=== PATIENT | male | born 1945 | race African-American/Black ===

== ENCOUNTER 2017-01-19 15:53 | Inpatient (IN) | payer OTHER, MEDICARE ==
[~2017-01-19] VITALS: Ht 185.4 cm; Wt 139.7 kg
[~2017-01-19 15:53] MED LIST: CASODEX50 MG PO; CELECOXIB200 MG PO; COUMADIN1 MG PO; HYZAAR 50-121 TABLET PO; IRON325 M1 PO; JANTOVEN4 MG PO; K-DUR20 MEQ PO; LIPITOR40 MG PO; LISINOPRIL-HCT1 EAC3 PO; MELOXICAM7.5 MG PO; METHOCARBAMOL500 MG PO; MICRO-K10 ME2 PO; MOBIC7.5 MG PO; NORVASC10 MG PO; OXYCODONE HCL5 MG PO; OXYCONTIN10 MG PO; PREDNISONE50 MG PO; TOPROL XL50 MG PO; TRAMADOL HCL50 MG PO; VITAMIN B12-FO1 EACH PO; VITAMIN D31000 UNIT PO; XARELTO10 MG PO
[2017-01-19 16:54] LABS: EOSINOPHIL (%) 0.5 % (0-5); HEMATOCRIT 25.2 % (38.0-50.0); IMMATURE GRANULOCYTE (%) 1.2 % (0.0-0.7); IMMATURE GRANULOCYTE COUNT 0.1 K/uL; INSTRUMENT ABS NEUTROPHIL CT 6.1 K/uL; LYMPHOCYTE COUNT 0.6 K/uL (1.0-2.8); MCH 28.5 PG (29.0-34.0); MCHC 31.3 G/DL (30.0-36.0); MONOCYTE (%) 7.5 % (3-12); MONOCYTE COUNT 0.6 K/uL (0-0.8); NEUTROPHIL (%) 83.2 % (45-76); NEUTROPHIL COUNT 6.1 K/uL (1.8-6.4); NRBC (%) 0.3 /100 WBC (0-0); PLATELET COUNT 177 K/uL (156-360); RBC DIS.WIDTH-CV 19.2 % (11.8-14.6); RBC DIS.WIDTH-SD 63.5 % (39-53); RED BLOOD COUNT 2.77 M/uL (4.00-5.50); WHITE BLOOD COUNT 7.4 K/uL (4.1-10.2)
[2017-01-19 17:02] LABS: CHLORIDE 110 mEq/L (99-109); SODIUM 139 mEq/L (136-147)
[2017-01-19 17:04] LABS: GLUCOSE 114 mg/dL (70-99)
[2017-01-19 17:05] LABS: ANION GAP 11 MEQ/L (2-14)
[2017-01-19 17:08] LABS: ALKALINE PHOSPHATASE 211 IU/L (3-129); GFR ESTIMATE (CALCULATED) 32 mL/min/
[2017-01-19 17:09] LABS: UREA NITROGEN (BUN) 44 mg/dL (9-23)
[2017-01-19] MEDS ORDERED: VITAMIN B-1100 MG PO (21:25)
[2017-01-19] MEDS ORDERED: MORPHINE SULFAT30 M2 PO (21:26)
[2017-01-19] MEDS ORDERED: PREDNISONE5 MG PO (21:27)
[2017-01-19] MEDS ORDERED: MORPHINE SULFAT15 MG PO (21:27)
[2017-01-19] MEDS ORDERED: SSD25GM TP (21:27)
[2017-01-19] MEDS ORDERED: ZYTAZE CAPSULE1 EACH PO (21:28)
[2017-01-19 21:45] LABS: ANION GAP 7 MEQ/L (2-14); CHLORIDE 113 MEQ/L (99-109); SAMPLE HEMOLYSIS CHECK 0; SAMPLE ICTERIC CHECK 0; SAMPLE LIPEMIA CHECK 0; SODIUM 140 MEQ/L (136-147)
[2017-01-19 21:51] LABS: GFR ESTIMATE (CALCULATED) 35 mL/min/; GLUCOSE 138 mg/dL (70-99); UREA NITROGEN (BUN) 43 mg/dL (9-23)
[2017-01-20 01:18] VITALS: BP 116/66
[2017-01-20 04:17] VITALS: BP 111/54
[2017-01-20 06:59] LABS: HEMATOCRIT 26.3 % (38.0-50.0); MCH 28.9 PG (29.0-34.0); MCHC 31.6 G/DL (30.0-36.0); MCV 91.6 FL (86-99); MEAN PLAT.VOLUME 9.9 uM^3 (9.0-12.4); NRBC (%) 0.6 /100 WBC (0-0); PLATELET COUNT 190 K/uL (156-360); RBC DIS.WIDTH-CV 19.4 % (11.8-14.6); RBC DIS.WIDTH-SD 66.1 % (39-53); RED BLOOD COUNT 2.87 M/uL (4.00-5.50); WHITE BLOOD COUNT 6.6 K/uL (4.1-10.2)
[2017-01-20 07:17] LABS: ANION GAP 11 MEQ/L (2-14); CHLORIDE 110 MEQ/L (99-109); GFR ESTIMATE (CALCULATED) 38 mL/min/; GLUCOSE 108 mg/dL (70-99); POTASSIUM 5.4 MEQ/L (3.7-5.4); SAMPLE HEMOLYSIS CHECK 0; SAMPLE ICTERIC CHECK 0; SAMPLE LIPEMIA CHECK 0; SODIUM 140 MEQ/L (136-147); UREA NITROGEN (BUN) 42 mg/dL (9-23)
[2017-01-20 08:00] VITALS: BP 110/52
[2017-01-20 15:32] LABS: ANION GAP 9 MEQ/L (2-14); CHLORIDE 113 MEQ/L (99-109); GFR ESTIMATE (CALCULATED) 43 mL/min/; GLUCOSE 100 mg/dL (70-99); POTASSIUM 4.8 MEQ/L (3.7-5.4); SAMPLE HEMOLYSIS CHECK 0; SAMPLE ICTERIC CHECK 0; SAMPLE LIPEMIA CHECK 0; SODIUM 141 MEQ/L (136-147); UREA NITROGEN (BUN) 40 mg/dL (9-23)
[2017-01-20 15:53] LABS: ADD MIUA? YES; BILIRUBIN NEGATIVE; BLOOD LARGE; COLOR YELLOW ((YELLOW)); GLUCOSE (STRIP) NEGATIVE; KETONES NEGATIVE; LEUKOCYTES NEGATIVE; NITRITE NEGATIVE; PROTEIN (STRIP) NEGATIVE; SPECIFIC GRAVITY 1.015 (1.000-1.030); UROBILINOGEN 0.2 MG/DL (0.2-1.0)
[2017-01-20 16:32] LABS: BACTERIA RARE /HPF; EPITHELIAL CELLS RARE /HPF; MUCUS TRACE /LPF
[2017-01-20 16:56] LABS: CASTS PRESENT /LPF; CRYSTALS NONE SEEN
[2017-01-20 16:57] LABS: COARSE GRANULAR CASTS 0-5 /LPF; FINE GRANULAR CASTS RARE /LPF
[2017-01-20 19:30] VITALS: BP 90/51
[2017-01-20 21:00] VITALS: BP 102/53
[2017-01-20 23:34] VITALS: BP 113/54
[2017-01-21 05:18] VITALS: BP 110/56
[2017-01-21 06:40] LABS: HEMATOCRIT 21.5 % (38.0-50.0); MCH 28.4 PG (29.0-34.0); MCHC 31.2 G/DL (30.0-36.0); MCV 91.1 FL (86-99); MEAN PLAT.VOLUME 9.9 uM^3 (9.0-12.4); NRBC (%) 0.5 /100 WBC (0-0); PLATELET COUNT 164 K/uL (156-360); RBC DIS.WIDTH-CV 19.2 % (11.8-14.6); RBC DIS.WIDTH-SD 64.1 % (39-53); RED BLOOD COUNT 2.36 M/uL (4.00-5.50); WHITE BLOOD COUNT 5.5 K/uL (4.1-10.2)
[2017-01-21 06:45] LABS: URIC ACID 7.9 mg/dL (3.1-9.2)
[2017-01-21 06:51] LABS: ANION GAP 11 MEQ/L (2-14); CHLORIDE 112 MEQ/L (99-109); GFR ESTIMATE (CALCULATED) 55 mL/min/; GLUCOSE 101 mg/dL (70-99); POTASSIUM 4.4 MEQ/L (3.7-5.4); SAMPLE HEMOLYSIS CHECK 0; SAMPLE ICTERIC CHECK 0; SAMPLE LIPEMIA CHECK 0; SODIUM 144 MEQ/L (136-147); UREA NITROGEN (BUN) 34 mg/dL (9-23)
[2017-01-21 07:54] VITALS: BP 113/54
[2017-01-21 09:10] LABS: HEMATOCRIT 26.5 % (38.0-50.0); MCV 91.7 FL (86-99)
[2017-01-21 13:07] LABS: INTER. NORMALIZED RATIO 1.6; PROTHROMBIN TIME 17.4 SEC (10.2-12.9)
[2017-01-21 13:09] LABS: PTT 38.9 SEC (25-37)
[2017-01-21 13:21] LABS: IRON 53 MCG/DL (35-150)
[2017-01-21 13:37] LABS: FERRITIN 977 NG/ML (22-322)
[2017-01-21 15:34] VITALS: BP 108/51
[2017-01-21 19:52] LABS: INTERNAL CONTROL VALID? YES
[2017-01-21 20:02] VITALS: BP 103/51
[2017-01-21 20:36] VITALS: BP 101/74
[2017-01-21 22:10] VITALS: BP 101/54
[2017-01-22 00:12] VITALS: BP 135/59
[2017-01-22 06:17] LABS: HEMATOCRIT 22.6 % (38.0-50.0); MCH 28.5 PG (29.0-34.0); MCHC 31.4 G/DL (30.0-36.0); MCV 90.8 FL (86-99); MEAN PLAT.VOLUME 10.1 uM^3 (9.0-12.4); NRBC (%) 1.2 /100 WBC (0-0); PLATELET COUNT 174 K/uL (156-360); RBC DIS.WIDTH-CV 19.1 % (11.8-14.6); RBC DIS.WIDTH-SD 63.6 % (39-53); RED BLOOD COUNT 2.49 M/uL (4.00-5.50); WHITE BLOOD COUNT 6.5 K/uL (4.1-10.2)
[2017-01-22 06:24] LABS: ANION GAP 7 MEQ/L (2-14); CHLORIDE 110 MEQ/L (99-109); GFR ESTIMATE (CALCULATED) 51 mL/min/; GLUCOSE 98 mg/dL (70-99); POTASSIUM 4.1 MEQ/L (3.7-5.4); SAMPLE HEMOLYSIS CHECK 0; SAMPLE ICTERIC CHECK 0; SAMPLE LIPEMIA CHECK 0; SODIUM 139 MEQ/L (136-147); UREA NITROGEN (BUN) 33 mg/dL (9-23)
[2017-01-22 07:47] VITALS: BP 132/65
[2017-01-22 08:35] LABS: HEMATOCRIT 24.7 % (38.0-50.0); MCV 90.8 FL (86-99)
[2017-01-22 13:55] LABS: HEMATOCRIT 28.1 % (38.0-50.0); MCV 89.5 FL (86-99)
[2017-01-22 15:52] VITALS: BP 119/56
[2017-01-22 19:23] LABS: HEMATOCRIT 23.5 % (38.0-50.0); MCV 91.4 FL (86-99)
[2017-01-22 21:41] VITALS: BP 129/60
[2017-01-22 23:25] VITALS: BP 125/64
[2017-01-23 01:16] LABS: HEMATOCRIT 22.6 % (38.0-50.0); MCV 89.3 FL (86-99)
[2017-01-23 07:46] VITALS: BP 123/70
[2017-01-23 09:03] LABS: EOSINOPHIL (%) 2.3 % (0-5); EOSINOPHIL COUNT 0.2 K/uL (0-0.3); HEMATOCRIT 23.9 % (38.0-50.0); IMMATURE GRANULOCYTE COUNT 0.2 K/uL; LYMPHOCYTE COUNT 0.9 K/uL (1.0-2.8); MCH 29.4 PG (29.0-34.0); MCHC 32.6 G/DL (30.0-36.0); MCV 90.2 FL (86-99); MEAN PLAT.VOLUME 10.2 uM^3 (9.0-12.4); MONOCYTE (%) 6.5 % (3-12); MONOCYTE COUNT 0.4 K/uL (0-0.8); NEUTROPHIL (%) 74.2 % (45-76); PLATELET COUNT 195 K/uL (156-360); RBC DIS.WIDTH-CV 18.9 % (11.8-14.6); RBC DIS.WIDTH-SD 62.6 % (39-53); RED BLOOD COUNT 2.65 M/uL (4.00-5.50); WHITE BLOOD COUNT 6.7 K/uL (4.1-10.2)
[2017-01-23 09:23] LABS: ANION GAP 11 MEQ/L (2-14); CHLORIDE 107 MEQ/L (99-109); GFR ESTIMATE (CALCULATED) > 59 mL/min/; GLUCOSE 108 mg/dL (70-99); MAGNESIUM 1.9 mg/dl (1.3-2.7); SAMPLE HEMOLYSIS CHECK 0; SAMPLE ICTERIC CHECK 0; SAMPLE LIPEMIA CHECK 0; SODIUM 139 MEQ/L (136-147); UREA NITROGEN (BUN) 31 mg/dL (9-23)
[2017-01-23] MEDS ORDERED: FAMOTIDINE40 MG PO (11:44)
[2017-01-23] MEDS ORDERED: NEUTRA-PHOS,1 PACKET PO (11:44)
[2017-01-23] MEDS ORDERED: CEPHALEXIN500 MG PO (11:44)
[2017-01-23 14:03] LABS: HEMATOCRIT 22.5 % (38.0-50.0); MCV 90.7 FL (86-99)
[2017-01-23 16:17] VITALS: BP 122/70
[2017-01-24 21:01] LABS: AP Bone Isoenzyme 45 % (28-66); AP Intestine Isoenzyme 0 % (1-24); AP Liver Isoenzyme 55 % (25-69); AP Macrohepatic Isoenzyme 0 % (<=0); AP Placental Isoenzyme 0 % (<=0); Alkaline Phosphatase, Total 159 U/L (40-115)
== END 2017-01-23 17:00 | disposition home health service (06) | DRG 683 ==
LOC: EME 15:53 → EDOF 21:45 → 5EAST 21:45 → ENRESERV 21:46 → 5EAST 01-20 00:45
PROVIDERS: Emergency Medicine; Hospitalist; Internal Medicine Nephrology; Specialist
DX: N17.9 Acute kidney failure, unspecified (principal); E87.5 Hyperkalemia; D63.8 Anemia in other chronic diseases classified elsewhere; C61 Malignant neoplasm of prostate; E86.0 Dehydration; L03.116 Cellulitis of left lower limb; C79.51 Secondary malignant neoplasm of bone; I10 Essential (primary) hypertension; E66.01 Morbid (severe) obesity due to excess calories; E78.5 Hyperlipidemia, unspecified; K59.00 Constipation, unspecified; L97.929 Non-pressure chronic ulcer of unspecified part of left lower leg with unspecified severity; L89.302 Pressure ulcer of unspecified buttock, stage 2; L89.310 Pressure ulcer of right buttock, unstageable; L89.220 Pressure ulcer of left hip, unstageable; L89.210 Pressure ulcer of right hip, unstageable; L89.320 Pressure ulcer of left buttock, unstageable; S80.821A Blister (nonthermal), right lower leg, initial encounter; L98.7 Excessive and redundant skin and subcutaneous tissue; Z68.39 Body mass index [BMI] 39.0-39.9, adult; Z86.718 Personal history of other venous thrombosis and embolism; Z96.652 Presence of left artificial knee joint; Z92.3 Personal history of irradiation; Z90.79 Acquired absence of other genital organ(s); Z87.891 Personal history of nicotine dependence; Z85.46 Personal history of malignant neoplasm of prostate; Z79.899 Other long term (current) drug therapy
CPT/HCPCS: 36415; 76770; 80048; 80048 91; 80053; 80069; 81003; 82272; 82607; 82728; 82746; 83540; 83735; 83935; 84075 90; 84080 90; 84300; 84466; 84550; 85014; 85018; 85025; 85025 91; 85027; 85610; 85730; 86850; 86870; 86900; 86901; 86905; 86920; 93005; 93970; 94640; 99281; 99285; A6212; G0463; J1644; J1650; J7030; J7120; J7512

== ENCOUNTER 2017-02-08 12:51 | Inpatient (IN) | payer OTHER, MEDICARE ==
[~2017-02-08] VITALS: Ht 185.4 cm; Wt 133.0 kg
[~2017-02-08 12:51] MED LIST changes: +CEPHALEXIN500 MG PO; +FAMOTIDINE40 MG PO; +MORPHINE SULFAT15 MG PO; +MORPHINE SULFAT30 M2 PO; +NEUTRA-PHOS,1 PACKET PO; +PREDNISONE5 MG PO; +SSD25GM TP; +VITAMIN B12 100MCG PO; +ZYTAZE CAPSULE1 EACH PO
[2017-02-08 14:41] LABS: HEMATOCRIT 20.3 % (38.0-50.0); MCH 28.5 PG (29.0-34.0); NRBC (%) 3.6 /100 WBC (0-0); RBC DIS.WIDTH-CV 19.4 % (11.8-14.6); RBC DIS.WIDTH-SD 62.5 % (39-53); RED BLOOD COUNT 2.28 M/uL (4.00-5.50); WHITE BLOOD COUNT 7.6 K/uL (4.1-10.2)
[2017-02-08 14:48] LABS: CHLORIDE 108 mEq/L (99-109); SODIUM 136 mEq/L (136-147)
[2017-02-08 14:50] LABS: GLUCOSE 95 mg/dL (70-99)
[2017-02-08 14:51] LABS: ANION GAP 9 MEQ/L (2-14)
[2017-02-08 14:54] LABS: GFR ESTIMATE (CALCULATED) > 59 mL/min/
[2017-02-08 14:55] LABS: UREA NITROGEN (BUN) 22 mg/dL (9-23)
[2017-02-08 14:58] LABS: TROP-I INTERPRETATION NEGATIVE; TROPONIN-I < 0.01 ng/mL (0.0-0.30)
[2017-02-08 15:33] LABS: ABS NEUTROPHIL COUNT 7.1; ACANTHOCYTES 1+; ANISOCYTOSIS 1+; BASOPHILS 0.9 %; EOSINOPHIL ABS CT 0; HELMET CELLS 1+; HYPOCHROMASIA 1+; INSTRUMENT ABS NEUTROPHIL CT 5.8 K/uL; LYMPHOCYTES 6.2 % (15.0-45.0); MACROCYTES 1+; MEAN PLAT.VOLUME 9.8 uM^3 (9.0-12.4); NUCLEATED RBC'S 3.5; OVALOCYTES 1+; PLAT.SUFFICIENCY DECREASED; POIKILOCYTOSIS 1+; POLYCHROMASIA 1+; SCHISTOCYTES 2+; SEG.NEUTROPHILS 69.9 % (46.0-76.0); TEAR DROP CELLS 1+
[2017-02-08 15:36] LABS: PLATELET COUNT 110 K/uL (156-360)
[2017-02-08 17:21] LABS: TOTAL BILIRUBIN 1.7 mg/dL (0.0-1.0)
[2017-02-08 17:22] LABS: ALKALINE PHOSPHATASE 167 IU/L (3-129)
[2017-02-08 17:24] LABS: DIRECT BILIRUBIN 0.8 mg/dL (0.0-0.3)
[2017-02-08 18:04] LABS: ADD MIUA? YES; BILIRUBIN NEGATIVE; BLOOD SMALL; COLOR YELLOW ((YELLOW)); GLUCOSE (STRIP) NEGATIVE; KETONES NEGATIVE; LEUKOCYTES SMALL; NITRITE NEGATIVE; PROTEIN (STRIP) 30; SPECIFIC GRAVITY 1.012 (1.000-1.030); UROBILINOGEN 0.2 MG/DL (0.2-1.0)
[2017-02-08 18:11] LABS: BACTERIA RARE /HPF; EPITHELIAL CELLS RARE /HPF; HYALINE CASTS 30-40 /LPF; MUCUS TRACE /LPF; RED BLOOD CELLS 0-5 /HPF (0-5); WHITE BLOOD CELLS 0-5 /HPF (0-5)
[2017-02-08 20:06] VITALS: BP 134/119
[2017-02-08 22:00] VITALS: BP 135/51
[2017-02-08 22:03] LABS: METH RESISTANT S AUREUS PCR POSITIVE (NEGATIVE)
[2017-02-08 22:04] LABS: PROBE CHECK PASS; SPECIMEN PROCESSING CONTROL PASS
[2017-02-08 23:57] VITALS: BP 123/53
[2017-02-09] VITALS (24 sets, daily range): BP systolic 96–148; BP diastolic 36–69
[2017-02-09 07:46] LABS: HEMATOCRIT 22.4 % (38.0-50.0); MCH 28.4 PG (29.0-34.0); MCHC 32.6 G/DL (30.0-36.0); MCV 87.2 FL (86-99); NRBC (%) 1.7 /100 WBC (0-0); PLATELET COUNT 107 K/uL (156-360); RBC DIS.WIDTH-CV 18.4 % (11.8-14.6); RBC DIS.WIDTH-SD 57.1 % (39-53); RED BLOOD COUNT 2.57 M/uL (4.00-5.50); WHITE BLOOD COUNT 6.9 K/uL (4.1-10.2)
[2017-02-09 08:08] LABS: ANION GAP 10 MEQ/L (2-14); CHLORIDE 109 MEQ/L (99-109); GFR ESTIMATE (CALCULATED) > 59 mL/min/; GLUCOSE 88 mg/dL (70-99); POTASSIUM 3.1 MEQ/L (3.7-5.4); SAMPLE HEMOLYSIS CHECK 0; SAMPLE ICTERIC CHECK 0; SAMPLE LIPEMIA CHECK 0; SODIUM 142 MEQ/L (136-147); UREA NITROGEN (BUN) 21 mg/dL (9-23)
[2017-02-09 12:18] LABS: MAGNESIUM 1.9 mg/dl (1.3-2.7)
[2017-02-10 00:24] VITALS: BP 119/67
[2017-02-10 04:21] VITALS: BP 138/67
[2017-02-10 06:05] LABS: HEMATOCRIT 26.9 % (38.0-50.0); MCH 28.5 PG (29.0-34.0); MCHC 33.1 G/DL (30.0-36.0); MCV 86.2 FL (86-99); MEAN PLAT.VOLUME 10.2 uM^3 (9.0-12.4); NRBC (%) 1.6 /100 WBC (0-0); PLATELET COUNT 112 K/uL (156-360); RBC DIS.WIDTH-CV 17.9 % (11.8-14.6); RBC DIS.WIDTH-SD 54.4 % (39-53); WHITE BLOOD COUNT 7.6 K/uL (4.1-10.2)
[2017-02-10 06:22] LABS: RED BLOOD COUNT 3.12 M/uL (4.00-5.50)
[2017-02-10 06:51] LABS: ANION GAP 10 MEQ/L (2-14); CHLORIDE 110 MEQ/L (99-109); GFR ESTIMATE (CALCULATED) > 59 mL/min/; GLUCOSE 100 mg/dL (70-99); SAMPLE HEMOLYSIS CHECK 0; SAMPLE ICTERIC CHECK 0; SAMPLE LIPEMIA CHECK 0; SODIUM 141 MEQ/L (136-147); UREA NITROGEN (BUN) 17 mg/dL (9-23)
[2017-02-10 06:57] LABS: POTASSIUM 3.9 MEQ/L (3.7-5.4)
[2017-02-10 07:32] VITALS: BP 128/52
[2017-02-10 12:08] VITALS: BP 134/58
[2017-02-10 13:33] LABS: POINT-OF-CARE METER ID UU13113717
[2017-02-10 16:12] LABS: C DIFF TOXIN NEGATIVE (NEGATIVE)
[2017-02-10 16:23] VITALS: BP 144/58
[2017-02-10 16:44] LABS: PROBE CHECK PASS; SPECIMEN PROCESSING CONTROL PASS
[2017-02-10 19:30] VITALS: BP 131/69
[2017-02-11 00:15] VITALS: BP 143/74
[2017-02-11 04:05] VITALS: BP 137/61
[2017-02-11 08:00] VITALS: BP 144/78
[2017-02-11 09:47] LABS: HEMATOCRIT 29.6 % (38.0-50.0); MCH 27.9 PG (29.0-34.0); MCHC 32.4 G/DL (30.0-36.0); MEAN PLAT.VOLUME 9.7 uM^3 (9.0-12.4); NRBC (%) 0.7 /100 WBC (0-0); PLATELET COUNT 113 K/uL (156-360); RBC DIS.WIDTH-CV 17.8 % (11.8-14.6); RBC DIS.WIDTH-SD 56.2 % (39-53); RED BLOOD COUNT 3.44 M/uL (4.00-5.50); WHITE BLOOD COUNT 8.1 K/uL (4.1-10.2)
[2017-02-11 16:00] VITALS: BP 118/68
[2017-02-11 19:39] VITALS: BP 130/67
[2017-02-12 00:02] VITALS: BP 137/65
[2017-02-12 07:55] VITALS: BP 166/77
[2017-02-12] MEDS ORDERED: POLYETHYLENE GL17 GM PO (13:58)
[2017-02-12] MEDS ORDERED: PANTOPRAZOLE SO40 MG PO (13:59)
[2017-02-12] MEDS ORDERED: LIDOCAINE700 MG TP (14:00)
[2017-02-12] MEDS ORDERED: MORPHINE SULFAT15 MG PO (14:01)
== END 2017-02-12 16:13 | DRG 811 ==
LOC: EME 12:51 → 4WEST 16:48 → EDOF 16:48 → ENRESERV 16:57 → 4WEST 19:53 → ENRESERV 02-09 11:48 → 5SOUTH 02-09 15:21
PROVIDERS: Emergency Medicine; Internal Medicine
PROC: 30233N1 Transfusion of Nonautologous Red Blood Cells into Peripheral Vein, Percutaneous Approach (ICD-10-PCS; principal; 2017-02-08)
DX: D64.9 Anemia, unspecified (principal); D69.6 Thrombocytopenia, unspecified; C61 Malignant neoplasm of prostate; E86.0 Dehydration; I95.9 Hypotension, unspecified; E87.6 Hypokalemia; I87.2 Venous insufficiency (chronic) (peripheral); L97.921 Non-pressure chronic ulcer of unspecified part of left lower leg limited to breakdown of skin; L89.320 Pressure ulcer of left buttock, unstageable; L89.313 Pressure ulcer of right buttock, stage 3; I10 Essential (primary) hypertension; E78.5 Hyperlipidemia, unspecified; M54.9 Dorsalgia, unspecified; R06.02 Shortness of breath; R07.9 Chest pain, unspecified; R11.2 Nausea with vomiting, unspecified; R31.9 Hematuria, unspecified; Z66 Do not resuscitate; E66.01 Morbid (severe) obesity due to excess calories; Z68.38 Body mass index [BMI] 38.0-38.9, adult; Z82.49 Family history of ischemic heart disease and other diseases of the circulatory system; Z22.322 Carrier or suspected carrier of Methicillin resistant Staphylococcus aureus; Z85.07 Personal history of malignant neoplasm of pancreas; Z85.46 Personal history of malignant neoplasm of prostate; Z87.891 Personal history of nicotine dependence; Z92.3 Personal history of irradiation; Z96.652 Presence of left artificial knee joint
CPT/HCPCS: 71010; 80048; 80076; 81003; 82272; 82948; 83735; 83880; 84484; 85025; 85027; 86850; 86870; 86880; 86900; 86901; 86905; 86920; 87070; 87075; 87077; 87086; 87186; 87205; 87493; 87641; 90686; 93005; 99281; 99285; A6212; C9113; J0690; J0692; J1940; J2405; J2765; J3370; J7030; J7050; J7512; P9016

== ENCOUNTER 2017-03-07 23:50 | Inpatient (IN) | payer OTHER, MEDICARE ==
[~2017-03-07] VITALS: Ht 185.4 cm; Wt 138.0 kg
[~2017-03-07 23:50] MED LIST changes: +LIDOCAINE700 MG TP; +PANTOPRAZOLE SO40 MG PO; +POLYETHYLENE GL17 GM PO
[2017-03-08] VITALS (14 sets, daily range): BP systolic 96–152; BP diastolic 56–73
[2017-03-08 00:43] LABS: HEMATOCRIT 20.6 % (38.0-50.0); MCH 27.4 PG (29.0-34.0); MCV 85.5 FL (86-99); NRBC (%) 1.8 /100 WBC (0-0); PLATELET COUNT 161 K/uL (156-360); RBC DIS.WIDTH-CV 16.5 % (11.8-14.6); RBC DIS.WIDTH-SD 50.8 % (39-53); RED BLOOD COUNT 2.41 M/uL (4.00-5.50); WHITE BLOOD COUNT 7.2 K/uL (4.1-10.2)
[2017-03-08 00:46] LABS: ALBUMIN 2.4 g/dL (3.2-4.8); CHLORIDE 97 mEq/L (99-109); POTASSIUM 3.4 mEq/L (3.7-5.4); SODIUM 137 mEq/L (136-147)
[2017-03-08 00:47] LABS: MAGNESIUM 1.6 mg/dL (1.3-2.7)
[2017-03-08 00:48] LABS: GLUCOSE 122 mg/dL (70-99); TOTAL PROTEIN 6.5 g/dL (6.4-8.3)
[2017-03-08 00:51] LABS: HEMOGLOBIN 6.6 G/DL (12.5-16.6)
[2017-03-08 00:52] LABS: ALKALINE PHOSPHATASE 289 IU/L (3-129); CREATININE 0.8 mg/dL (0.6-1.3); GFR ESTIMATE (CALCULATED) > 59 mL/min/
[2017-03-08 00:53] LABS: UREA NITROGEN (BUN) 13 mg/dL (9-23)
[2017-03-08 00:54] LABS: AST (GOT) 20 IU/L (2-34)
[2017-03-08 00:55] LABS: ALT (GPT) 11 IU/L (3-49); CREATINE KINASE 84 IU/L (1-294); TOTAL CK 84 IU/L (1-294)
[2017-03-08 00:58] LABS: TROP-I INTERPRETATION NEGATIVE; TROPONIN-I < 0.01 ng/mL (0.0-0.30)
[2017-03-08 01:02] LABS: CK-MB 0.5 ng/mL (0.0-4.9); CKMB RELATIVE INDEX 0.6 (0.0-3.9)
[2017-03-08 01:14] LABS: APPEARANCE SL.HAZY ((CLEAR)); BILIRUBIN SMALL; BLOOD NEGATIVE; COLOR AMBER ((YELLOW)); GLUCOSE (STRIP) 50; KETONES 5; LEUKOCYTES NEGATIVE; NITRITE NEGATIVE; PROTEIN (STRIP) 100
[2017-03-08 01:24] LABS: BASOPHIL (%) 0.1 % (0-1); EOSINOPHIL (%) 0.1 % (0-5); HEMATOLOGY COMMENT 1 SMEAR COMPATIBLE; IMMATURE GRANULOCYTE (%) 4.4 % (0.0-0.7); LYMPHOCYTE (%) 10.1 % (15-42); LYMPHOCYTE COUNT 0.7 K/uL (1.0-2.8); MONOCYTE (%) 5.4 % (3-12); MONOCYTE COUNT 0.4 K/uL (0-0.8); NEUTROPHIL (%) 79.9 % (45-76); NEUTROPHIL COUNT 5.8 K/uL (1.8-6.4)
[2017-03-08 01:35] LABS: BACTERIA 1+ /HPF; EPITHELIAL CELLS NONE SEEN /HPF; HYALINE CASTS TNTC /LPF; MUCUS 3+ /LPF; RED BLOOD CELLS NONE SEEN /HPF (0-5); UCUL ADDED? NO; WHITE BLOOD CELLS 0-5 /HPF (0-5)
[2017-03-08] MEDS ORDERED: LIDODERM 5% P1 PATCH TD (07:53)
[2017-03-08] MEDS ORDERED: VITAMIN A DAY1 EACH PO (07:55)
[2017-03-08] MEDS ORDERED: MORPHINE SULFAT15 MG PO (07:55)
[2017-03-08] MEDS ORDERED: PRILOSEC20 MG PO (07:56)
[2017-03-08] MEDS ORDERED: A&D OINTMENT60 GM TP (08:02)
[2017-03-08] MEDS ORDERED: CALMOSEPTINE O3.5 GM TP (08:03)
[2017-03-08 10:37] LABS: HEMATOCRIT 21.1 % (38.0-50.0); MCV 85.4 FL (86-99)
[2017-03-08 20:47] LABS: HEMATOCRIT 22.5 % (38.0-50.0); HEMOGLOBIN 7.5 G/DL (12.5-16.6)
[2017-03-09] VITALS (12 sets, daily range): BP systolic 106–163; BP diastolic 54–82
[2017-03-09 06:44] LABS: BASOPHIL (%) 0.2 % (0-1); EOSINOPHIL (%) 0.2 % (0-5); HEMATOCRIT 21.7 % (38.0-50.0); HEMOGLOBIN 7.3 G/DL (12.5-16.6); IMMATURE GRANULOCYTE (%) 4.6 % (0.0-0.7); LYMPHOCYTE (%) 9.9 % (15-42); LYMPHOCYTE COUNT 0.6 K/uL (1.0-2.8); MCH 28.5 PG (29.0-34.0); MCHC 33.6 G/DL (30.0-36.0); MCV 84.8 FL (86-99); MONOCYTE (%) 6.6 % (3-12); MONOCYTE COUNT 0.4 K/uL (0-0.8); NEUTROPHIL (%) 78.5 % (45-76); NEUTROPHIL COUNT 4.8 K/uL (1.8-6.4); NRBC (%) 1.5 /100 WBC (0-0); PLATELET COUNT 125 K/uL (156-360); RBC DIS.WIDTH-CV 16.1 % (11.8-14.6); RBC DIS.WIDTH-SD 49.5 % (39-53); RED BLOOD COUNT 2.56 M/uL (4.00-5.50); WHITE BLOOD COUNT 6.1 K/uL (4.1-10.2)
[2017-03-09 07:26] LABS: ALKALINE PHOSPHATASE 220 IU/L (3-129); ALT (GPT) 7 IU/L (3-49); AST (GOT) 15 IU/L (2-34); CHLORIDE 97 MEQ/L (99-109); CREATININE 0.8 MG/DL (0.6-1.3); GFR ESTIMATE (CALCULATED) > 59 mL/min/; POTASSIUM 2.9 MEQ/L (3.7-5.4); SODIUM 138 MEQ/L (136-147); TOTAL BILIRUBIN 1.3 MG/DL (0.0-1.0); TOTAL PROTEIN 5.1 G/DL (6.4-8.3); UREA NITROGEN (BUN) 12 mg/dL (9-23)
[2017-03-09 07:28] LABS: GLUCOSE 90 mg/dL (70-99)
[2017-03-09 08:56] LABS: MAGNESIUM 1.6 mg/dl (1.3-2.7)
[2017-03-10 03:34] VITALS: BP 144/72
[2017-03-10 07:33] VITALS: BP 138/66
[2017-03-10 09:52] LABS: CHLORIDE 98 MEQ/L (99-109); CREATININE 1.2 MG/DL (0.6-1.3); GFR ESTIMATE (CALCULATED) > 59 mL/min/; GLUCOSE 103 mg/dL (70-99); POTASSIUM 3.4 MEQ/L (3.7-5.4); SODIUM 138 MEQ/L (136-147); UREA NITROGEN (BUN) 17 mg/dL (9-23)
[2017-03-10 11:57] LABS: HEMATOCRIT 25.8 % (38.0-50.0); HEMOGLOBIN 8.6 G/DL (12.5-16.6); MCH 28.2 PG (29.0-34.0); MCHC 33.3 G/DL (30.0-36.0); MCV 84.6 FL (86-99); PLATELET COUNT 124 K/uL (156-360); RBC DIS.WIDTH-CV 16.1 % (11.8-14.6); RED BLOOD COUNT 3.05 M/uL (4.00-5.50); WHITE BLOOD COUNT 5.8 K/uL (4.1-10.2)
[2017-03-10 12:22] VITALS: BP 120/66
[2017-03-10 12:45] LABS: ANISOCYTOSIS 1+; BAND NEUTROPHILS 4.3 % (0-8.0); EOSINOPHIL ABS CT 0; METAMYELOCYTES 1.7 %; MONOCYTES 3.5 % (0-9.0); MYELOCYTES 1.7 %; NUCLEATED RBC'S 0.9; PLAT.SUFFICIENCY DECREASED; POIKILOCYTOSIS 1+; SEG.NEUTROPHILS 81.8 % (46.0-76.0); SMUDGE CELLS 4.3
[2017-03-10 16:18] VITALS: BP 110/62
[2017-03-10 19:21] VITALS: BP 118/59
[2017-03-10 23:48] VITALS: BP 140/67
[2017-03-11 03:32] VITALS: BP 119/62
[2017-03-11 07:25] LABS: BASOPHIL (%) 0.3 % (0-1); EOSINOPHIL (%) 0.3 % (0-5); HEMATOCRIT 26.4 % (38.0-50.0); HEMOGLOBIN 8.7 G/DL (12.5-16.6); LYMPHOCYTE (%) 10.6 % (15-42); LYMPHOCYTE COUNT 0.7 K/uL (1.0-2.8); MCH 28.1 PG (29.0-34.0); MCV 85.2 FL (86-99); MONOCYTE (%) 5.1 % (3-12); MONOCYTE COUNT 0.3 K/uL (0-0.8); NEUTROPHIL (%) 78.7 % (45-76); NRBC (%) 0.8 /100 WBC (0-0); PLATELET COUNT 133 K/uL (156-360); RBC DIS.WIDTH-CV 16.1 % (11.8-14.6); RBC DIS.WIDTH-SD 49.5 % (39-53); WHITE BLOOD COUNT 6.4 K/uL (4.1-10.2)
[2017-03-11 08:02] VITALS: BP 106/56
[2017-03-11 08:10] LABS: CHLORIDE 98 MEQ/L (99-109); GFR ESTIMATE (CALCULATED) 45 mL/min/; GLUCOSE 89 mg/dL (70-99); POTASSIUM 3.7 MEQ/L (3.7-5.4); SODIUM 138 MEQ/L (136-147); UREA NITROGEN (BUN) 22 mg/dL (9-23)
[2017-03-11 08:12] LABS: CREATININE 1.9 MG/DL (0.6-1.3)
[2017-03-11 11:58] VITALS: BP 110/52
[2017-03-11 15:28] VITALS: BP 115/64
[2017-03-11 20:11] VITALS: BP 133/72
[2017-03-12] VITALS (7 sets, daily range): BP systolic 98–128; BP diastolic 57–72
[2017-03-12 06:26] LABS: HEMATOCRIT 25.5 % (38.0-50.0); HEMOGLOBIN 8.4 G/DL (12.5-16.6); MCHC 32.9 G/DL (30.0-36.0); NRBC (%) 0.9 /100 WBC (0-0); PLATELET COUNT 131 K/uL (156-360); RBC DIS.WIDTH-CV 16.1 % (11.8-14.6); RBC DIS.WIDTH-SD 49.7 % (39-53); WHITE BLOOD COUNT 6.6 K/uL (4.1-10.2)
[2017-03-12 06:52] LABS: CHLORIDE 96 MEQ/L (99-109); GFR ESTIMATE (CALCULATED) 33 mL/min/; GLUCOSE 88 mg/dL (70-99); POTASSIUM 3.8 MEQ/L (3.7-5.4); SODIUM 136 MEQ/L (136-147); UREA NITROGEN (BUN) 29 mg/dL (9-23)
[2017-03-12 06:53] LABS: CREATININE 2.5 MG/DL (0.6-1.3)
[2017-03-12 06:57] LABS: ABS NEUTROPHIL COUNT 5.9; ANISOCYTOSIS 1+; BAND NEUTROPHILS 18.3 % (0-8.0); BASOPHILS 0.9 %; EOSINOPHIL ABS CT 0; HYPOCHROMASIA 1+; LYMPHOCYTES 5.2 % (15.0-45.0); MONOCYTES 4.3 % (0-9.0); NUCLEATED RBC'S 0.9; OVALOCYTES 1+; PLAT.SUFFICIENCY DECREASED; POIKILOCYTOSIS 2+; POLYCHROMASIA 1+; SCHISTOCYTES 1+; SEG.NEUTROPHILS 71.3 % (46.0-76.0)
[2017-03-13 03:34] VITALS: BP 98/58
[2017-03-13 07:43] LABS: HEMATOCRIT 24.8 % (38.0-50.0); MCH 27.8 PG (29.0-34.0); MCHC 32.3 G/DL (30.0-36.0); MCV 86.1 FL (86-99); PLATELET COUNT 140 K/uL (156-360); RBC DIS.WIDTH-SD 50.3 % (39-53); RED BLOOD COUNT 2.88 M/uL (4.00-5.50); WHITE BLOOD COUNT 6.9 K/uL (4.1-10.2)
[2017-03-13 08:10] LABS: ABS NEUTROPHIL COUNT 6.1; ANISOCYTOSIS 1+; BAND NEUTROPHILS 13.8 % (0-8.0); BASOPHILS 1.7 %; EOSINOPHIL ABS CT 0.1; EOSINOPHILS 0.9 % (0-5.0); HYPOCHROMASIA 1+; LYMPHOCYTES 5.2 % (15.0-45.0); METAMYELOCYTES 0.9 %; MONOCYTES 3.4 % (0-9.0); NUCLEATED RBC'S 0.9; OVALOCYTES 1+; PLAT.SUFFICIENCY DECREASED; POIKILOCYTOSIS 1+; POLYCHROMASIA 1+; SEG.NEUTROPHILS 74.1 % (46.0-76.0); TEAR DROP CELLS 1+
[2017-03-13 08:15] LABS: CHLORIDE 98 MEQ/L (99-109); GFR ESTIMATE (CALCULATED) 25 mL/min/; GLUCOSE 85 mg/dL (70-99); MAGNESIUM 1.6 mg/dl (1.3-2.7); PHOSPHORUS 3.1 mg/dL (2.5-4.9); SODIUM 136 MEQ/L (136-147); UREA NITROGEN (BUN) 35 mg/dL (9-23)
[2017-03-13 08:18] LABS: CREATININE 3.2 MG/DL (0.6-1.3)
[2017-03-13 08:26] VITALS: BP 128/65
[2017-03-13 11:17] VITALS: BP 124/62
[2017-03-13 23:08] VITALS: BP 122/55
[2017-03-14 04:17] VITALS: BP 120/56
[2017-03-14 08:11] LABS: HEMOGLOBIN 7.3 G/DL (12.5-16.6); MCHC 31.7 G/DL (30.0-36.0); MCV 85.2 FL (86-99); NRBC (%) 0.5 /100 WBC (0-0); PLATELET COUNT 130 K/uL (156-360); RBC DIS.WIDTH-SD 50.2 % (39-53); WHITE BLOOD COUNT 6.1 K/uL (4.1-10.2)
[2017-03-14 08:51] LABS: ABS NEUTROPHIL COUNT 5.6; ANISOCYTOSIS 2+; BAND NEUTROPHILS 7.8 % (0-8.0); EOSINOPHIL ABS CT 0.2; EOSINOPHILS 2.6 % (0-5.0); HYPOCHROMASIA 1+; LYMPHOCYTES 3.5 % (15.0-45.0); MICROCYTOSIS 1+; MONOCYTES 1.7 % (0-9.0); OVALOCYTES 1+; PLAT.SUFFICIENCY DECREASED; SEG.NEUTROPHILS 84.4 % (46.0-76.0)
[2017-03-14 08:55] LABS: CHLORIDE 98 MEQ/L (99-109); CREATININE 3.2 MG/DL (0.6-1.3); GFR ESTIMATE (CALCULATED) 25 mL/min/; GLUCOSE 81 mg/dL (70-99); POTASSIUM 3.7 MEQ/L (3.7-5.4); SODIUM 135 MEQ/L (136-147); UREA NITROGEN (BUN) 41 mg/dL (9-23)
[2017-03-14 10:55] VITALS: BP 90/40
[2017-03-14 15:06] VITALS: BP 101/62
[2017-03-14 16:40] LABS: HEMATOCRIT 24.3 % (38.0-50.0); HEMOGLOBIN 7.8 G/DL (12.5-16.6); MCH 27.5 PG (29.0-34.0); MCHC 32.1 G/DL (30.0-36.0); MCV 85.6 FL (86-99); NRBC (%) 0.6 /100 WBC (0-0); PLATELET COUNT 124 K/uL (156-360); RBC DIS.WIDTH-CV 16.1 % (11.8-14.6); RBC DIS.WIDTH-SD 50.4 % (39-53); RED BLOOD COUNT 2.84 M/uL (4.00-5.50); WHITE BLOOD COUNT 6.6 K/uL (4.1-10.2)
[2017-03-14 19:10] VITALS: BP 122/63
[2017-03-14 23:11] VITALS: BP 135/80
[2017-03-14 23:22] VITALS: BP 138/78
[2017-03-15] VITALS (10 sets, daily range): BP systolic 116–138; BP diastolic 52–64
[2017-03-15 09:22] LABS: HEMATOCRIT 22.4 % (38.0-50.0); HEMOGLOBIN 7.1 G/DL (12.5-16.6); MCH 27.1 PG (29.0-34.0); MCHC 31.7 G/DL (30.0-36.0); MCV 85.5 FL (86-99); NRBC (%) 0.4 /100 WBC (0-0); PLATELET COUNT 129 K/uL (156-360); RBC DIS.WIDTH-CV 16.1 % (11.8-14.6); RBC DIS.WIDTH-SD 51.2 % (39-53); RED BLOOD COUNT 2.62 M/uL (4.00-5.50); WHITE BLOOD COUNT 5.7 K/uL (4.1-10.2)
[2017-03-15 09:48] LABS: ABS NEUTROPHIL COUNT 5.4; ANISOCYTOSIS 1+; BAND NEUTROPHILS 9.6 % (0-8.0); EOSINOPHIL ABS CT 0.1; EOSINOPHILS 1.7 % (0-5.0); INTACT PARATHYROID HORMONE 146 pg/mL (10-69); LYMPHOCYTES 2.6 % (15.0-45.0); MICROCYTOSIS 1+; MONOCYTES 0.9 % (0-9.0); OVALOCYTES 1+; PLAT.SUFFICIENCY DECREASED; POIKILOCYTOSIS 1+; SEG.NEUTROPHILS 85.2 % (46.0-76.0); SMUDGE CELLS 2.6
[2017-03-15 09:50] LABS: CHLORIDE 98 MEQ/L (99-109); CREATININE 3.4 MG/DL (0.6-1.3); GFR ESTIMATE (CALCULATED) 23 mL/min/; GLUCOSE 97 mg/dL (70-99); MAGNESIUM 1.6 mg/dl (1.3-2.7); PHOSPHORUS 3.4 mg/dL (2.5-4.9); POTASSIUM 3.7 MEQ/L (3.7-5.4); SODIUM 135 MEQ/L (136-147); UREA NITROGEN (BUN) 45 mg/dL (9-23)
[2017-03-16 00:10] VITALS: BP 126/66
[2017-03-16 04:05] VITALS: BP 118/60
[2017-03-16 08:05] VITALS: BP 122/76
[2017-03-16 08:26] LABS: HEMATOCRIT 24.1 % (38.0-50.0); HEMOGLOBIN 7.9 G/DL (12.5-16.6); MCH 27.9 PG (29.0-34.0); MCHC 32.8 G/DL (30.0-36.0); MCV 85.2 FL (86-99); PLATELET COUNT 110 K/uL (156-360); RBC DIS.WIDTH-CV 15.9 % (11.8-14.6); RBC DIS.WIDTH-SD 49.1 % (39-53); RED BLOOD COUNT 2.83 M/uL (4.00-5.50); WHITE BLOOD COUNT 5.9 K/uL (4.1-10.2)
[2017-03-16 08:57] LABS: ABS NEUTROPHIL COUNT 5.2; ANISOCYTOSIS 1+; BAND NEUTROPHILS 5.2 % (0-8.0); EOSINOPHIL ABS CT 0; HYPOCHROMASIA 2+; LYMPHOCYTES 7.8 % (15.0-45.0); METAMYELOCYTES 0.9 %; MICROCYTOSIS 1+; MYELOCYTES 2.6 %; PLAT.SUFFICIENCY DECREASED; POIKILOCYTOSIS 1+; SEG.NEUTROPHILS 83.5 % (46.0-76.0)
[2017-03-16 09:01] LABS: CHLORIDE 99 MEQ/L (99-109); CREATININE 3.6 MG/DL (0.6-1.3); GFR ESTIMATE (CALCULATED) 22 mL/min/ (58.99-99999); GLUCOSE 90 mg/dL (70-99); POTASSIUM 3.8 MEQ/L (3.7-5.4); SODIUM 134 MEQ/L (136-147); UREA NITROGEN (BUN) 43 mg/dL (9-23)
[2017-03-16 11:56] LABS: ALBUMIN 2.4 G/DL (3.2-4.8)
[2017-03-16 12:28] VITALS: BP 120/68
[2017-03-16 12:34] LABS: HEPATITIS B SURFACE ANTIBODY Nonreactive; HEPATITIS B SURFACE ANTIGEN Nonreactive; HEPATITIS C ANTIBODY Nonreactive
[2017-03-16 13:12] LABS: ANTI-HEPATITIS B CORE (TOTAL) Nonreactive
[2017-03-16 19:58] VITALS: BP 110/62
[2017-03-16 23:57] VITALS: BP 107/64
[2017-03-17 04:10] VITALS: BP 121/59
[2017-03-17 07:45] LABS: HEMATOCRIT 24.3 % (38.0-50.0); HEMOGLOBIN 7.9 G/DL (12.5-16.6); MCH 27.6 PG (29.0-34.0); MCHC 32.5 G/DL (30.0-36.0); NRBC (%) 0.4 /100 WBC (0-0); PLATELET COUNT 95 K/uL (156-360); RBC DIS.WIDTH-SD 49.3 % (39-53); RED BLOOD COUNT 2.86 M/uL (4.00-5.50); WHITE BLOOD COUNT 4.8 K/uL (4.1-10.2)
[2017-03-17 08:15] LABS: CHLORIDE 101 MEQ/L (99-109); GLUCOSE 90 mg/dL (70-99); MAGNESIUM 1.5 mg/dl (1.3-2.7); PHOSPHORUS 3.1 mg/dL (2.5-4.9); SODIUM 136 MEQ/L (136-147); UREA NITROGEN (BUN) 29 mg/dL (9-23)
[2017-03-17 08:31] LABS: CREATININE 2.6 MG/DL (0.6-1.3); GFR ESTIMATE (CALCULATED) 32 mL/min/ (58.99-99999)
[2017-03-17 09:56] VITALS: BP 120/54
[2017-03-17 11:01] VITALS: BP 123/64
[2017-03-17 13:22] LABS: ABS NEUTROPHIL COUNT 4.3; ANISOCYTOSIS 1+; EOSINOPHIL ABS CT 0; OVALOCYTES 1+; PLAT.SUFFICIENCY DECREASED; TEAR DROP CELLS 1+
[2017-03-17 16:15] VITALS: BP 127/58
[2017-03-17 20:10] VITALS: BP 116/82
[2017-03-18] VITALS (7 sets, daily range): BP systolic 105–147; BP diastolic 60–70
[2017-03-18 07:29] LABS: IRON 55 MCG/DL (35-150); TRANSFERRIN (TIBC) < 75 mg/dL (215-380); TRANSFERRIN SATUR. 70 % (20-55)
[2017-03-18 08:46] LABS: HEMATOCRIT 23.7 % (38.0-50.0); HEMOGLOBIN 7.5 G/DL (12.5-16.6); MCH 27.2 PG (29.0-34.0); MCHC 31.6 G/DL (30.0-36.0); MCV 85.9 FL (86-99); NRBC (%) 0.4 /100 WBC (0-0); PLATELET COUNT 101 K/uL (156-360); RBC DIS.WIDTH-CV 16.1 % (11.8-14.6); RBC DIS.WIDTH-SD 50.6 % (39-53); RED BLOOD COUNT 2.76 M/uL (4.00-5.50); WHITE BLOOD COUNT 5.2 K/uL (4.1-10.2)
[2017-03-18 09:05] LABS: CHLORIDE 100 MEQ/L (99-109); GLUCOSE 81 mg/dL (70-99); POTASSIUM 3.9 MEQ/L (3.7-5.4); SODIUM 136 MEQ/L (136-147); UREA NITROGEN (BUN) 20 mg/dL (9-23)
[2017-03-18 09:06] LABS: GFR ESTIMATE (CALCULATED) 43 mL/min/ (58.99-99999)
[2017-03-19 04:48] VITALS: BP 150/70
[2017-03-19 08:33] VITALS: BP 119/58
[2017-03-19 08:55] LABS: HEMATOCRIT 24.4 % (38.0-50.0); HEMOGLOBIN 7.7 G/DL (12.5-16.6); MCHC 31.6 G/DL (30.0-36.0); MCV 85.6 FL (86-99); NRBC (%) 0.4 /100 WBC (0-0); PLATELET COUNT 79 K/uL (156-360); RBC DIS.WIDTH-CV 15.9 % (11.8-14.6); RBC DIS.WIDTH-SD 49.7 % (39-53); RED BLOOD COUNT 2.85 M/uL (4.00-5.50); WHITE BLOOD COUNT 4.7 K/uL (4.1-10.2)
[2017-03-19 09:17] LABS: ALBUMIN 2.4 G/DL (3.2-4.8); CHLORIDE 102 MEQ/L (99-109); POTASSIUM 3.9 MEQ/L (3.7-5.4); SODIUM 137 MEQ/L (136-147)
[2017-03-19 09:23] LABS: CREATININE 1.9 MG/DL (0.6-1.3); GFR ESTIMATE (CALCULATED) 45 mL/min/ (58.99-99999); GLUCOSE 87 mg/dL (70-99); PHOSPHORUS 2.7 mg/dL (2.5-4.9); UREA NITROGEN (BUN) 25 mg/dL (9-23)
[2017-03-19 09:45] LABS: ABS NEUTROPHIL COUNT 4.2; ANISOCYTOSIS 1+; EOSINOPHIL ABS CT 0; MACROCYTES 1+; PLAT.SUFFICIENCY DECREASED; POIKILOCYTOSIS 1+
[2017-03-19 12:35] VITALS: BP 122/62
[2017-03-19 16:30] VITALS: BP 122/60
[2017-03-19 19:12] VITALS: BP 111/68
[2017-03-19 23:32] VITALS: BP 133/60
[2017-03-20] VITALS (9 sets, daily range): BP systolic 113–138; BP diastolic 51–76
[2017-03-20 10:18] LABS: HEMATOCRIT 22.8 % (38.0-50.0); HEMOGLOBIN 7.3 G/DL (12.5-16.6); MCH 27.2 PG (29.0-34.0); MCV 85.1 FL (86-99); PLATELET COUNT 79 K/uL (156-360); RBC DIS.WIDTH-SD 49.9 % (39-53); RED BLOOD COUNT 2.68 M/uL (4.00-5.50); WHITE BLOOD COUNT 4.9 K/uL (4.1-10.2)
[2017-03-20 10:39] LABS: CHLORIDE 101 MEQ/L (99-109); CREATININE 2.2 MG/DL (0.6-1.3); GFR ESTIMATE (CALCULATED) 38 mL/min/ (58.99-99999); PHOSPHORUS 2.7 mg/dL (2.5-4.9); POTASSIUM 3.9 MEQ/L (3.7-5.4); SODIUM 135 MEQ/L (136-147); UREA NITROGEN (BUN) 25 mg/dL (9-23)
[2017-03-20 10:40] LABS: GLUCOSE 114 mg/dL (70-99)
[2017-03-20 11:00] LABS: ABS NEUTROPHIL COUNT 4.2; ANISOCYTOSIS 1+; EOSINOPHIL ABS CT 0.2; EOSINOPHILS 3.5 % (0-5.0); LYMPHOCYTES 9.7 % (15.0-45.0); MONOCYTES 0.9 % (0-9.0); NUCLEATED RBC'S 0.9; PLAT.SUFFICIENCY DECREASED; POIKILOCYTOSIS 1+; SEG.NEUTROPHILS 78.9 % (46.0-76.0); SMUDGE CELLS 5.3; TEAR DROP CELLS 1+
[2017-03-21] VITALS (7 sets, daily range): BP systolic 110–138; BP diastolic 58–82
[2017-03-21 07:38] LABS: HEMATOCRIT 27.8 % (38.0-50.0); MCH 27.4 PG (29.0-34.0); MCHC 32.4 G/DL (30.0-36.0); MCV 84.8 FL (86-99); NRBC (%) 0.6 /100 WBC (0-0); PLATELET COUNT 68 K/uL (156-360); RBC DIS.WIDTH-CV 15.5 % (11.8-14.6); RBC DIS.WIDTH-SD 47.9 % (39-53)
[2017-03-21 07:40] LABS: RED BLOOD COUNT 3.28 M/uL (4.00-5.50)
[2017-03-21 08:03] LABS: CHLORIDE 101 MEQ/L (99-109); CREATININE 2.2 MG/DL (0.6-1.3); GFR ESTIMATE (CALCULATED) 38 mL/min/ (58.99-99999); GLUCOSE 90 mg/dL (70-99); POTASSIUM 3.9 MEQ/L (3.7-5.4); SODIUM 136 MEQ/L (136-147); UREA NITROGEN (BUN) 26 mg/dL (9-23)
[2017-03-21 08:11] LABS: ABS NEUTROPHIL COUNT 4.3; ATYPICAL LYMPHOCYTE 1.8 %; BAND NEUTROPHILS 17.5 % (0-8.0); EOSINOPHIL ABS CT 0; LYMPHOCYTES 6.1 % (15.0-45.0); METAMYELOCYTES 1.8 %; MONOCYTES 3.5 % (0-9.0); OVALOCYTES 1+; PLAT.SUFFICIENCY DECREASED; POIKILOCYTOSIS 1+; SEG.NEUTROPHILS 69.3 % (46.0-76.0); TEAR DROP CELLS 1+
[2017-03-22 06:02] LABS: HEMATOCRIT 27.8 % (38.0-50.0); HEMOGLOBIN 8.8 G/DL (12.5-16.6); MCH 27.2 PG (29.0-34.0); MCHC 31.7 G/DL (30.0-36.0); MCV 86.1 FL (86-99); NRBC (%) 0.4 /100 WBC (0-0); PLATELET COUNT 69 K/uL (156-360); RBC DIS.WIDTH-CV 15.6 % (11.8-14.6); RBC DIS.WIDTH-SD 49.5 % (39-53); RED BLOOD COUNT 3.23 M/uL (4.00-5.50); WHITE BLOOD COUNT 4.7 K/uL (4.1-10.2)
[2017-03-22 06:35] LABS: CHLORIDE 101 MEQ/L (99-109); CREATININE 2.3 MG/DL (0.6-1.3); GFR ESTIMATE (CALCULATED) 36 mL/min/ (58.99-99999); GLUCOSE 119 mg/dL (70-99); POTASSIUM 4.5 MEQ/L (3.7-5.4); SODIUM 134 MEQ/L (136-147); UREA NITROGEN (BUN) 29 mg/dL (9-23)
[2017-03-22 06:55] LABS: ABS NEUTROPHIL COUNT 4.1; ANISOCYTOSIS 1+; BAND NEUTROPHILS 4.3 % (0-8.0); BASOPHILS 2.6 %; EOSINOPHIL ABS CT 0; EOSINOPHILS 0.9 % (0-5.0); HYPOCHROMASIA 1+; LYMPHOCYTES 6.1 % (15.0-45.0); MICROCYTOSIS 1+; MONOCYTES 2.6 % (0-9.0); OVALOCYTES 1+; PLAT.SUFFICIENCY DECREASED; POIKILOCYTOSIS 1+; POLYCHROMASIA 1+; SEG.NEUTROPHILS 83.5 % (46.0-76.0)
[2017-03-22 08:14] VITALS: BP 110/59
== END 2017-03-22 18:50 | DRG 177 ==
LOC: EME 23:50 → 3EAST 03-08 02:18 → EDOF 03-08 02:18 → ENRESERV 03-08 02:19 → 3EAST 03-08 12:58 → CANRESERV 03-11 00:04 → ENRESERV 03-11 00:04 → 3EAST 03-22 18:50
PROVIDERS: Emergency Medicine; Internal Medicine; Internal Medicine Nephrology; Physician Assistant; Physician Assistant Medical; Student in an Organized Health Care Education/Training Program
PROC: 30233N1 Transfusion of Nonautologous Red Blood Cells into Peripheral Vein, Percutaneous Approach (ICD-10-PCS; principal; 2017-03-08)
PROC: 02PYX3Z Removal of Infusion Device from Great Vessel, External Approach (ICD-10-PCS; 2017-03-13)
PROC: 5A1D70Z Performance of Urinary Filtration, Intermittent, Less than 6 Hours Per Day (ICD-10-PCS; 2017-03-16)
DX: J69.0 Pneumonitis due to inhalation of food and vomit (principal); J96.01 Acute respiratory failure with hypoxia; C61 Malignant neoplasm of prostate; E88.09 Other disorders of plasma-protein metabolism, not elsewhere classified; Z66 Do not resuscitate; Z96.653 Presence of artificial knee joint, bilateral; E78.5 Hyperlipidemia, unspecified; D50.0 Iron deficiency anemia secondary to blood loss (chronic); M54.9 Dorsalgia, unspecified; B95.62 Methicillin resistant Staphylococcus aureus infection as the cause of diseases classified elsewhere; Z16.11 Resistance to penicillins; I10 Essential (primary) hypertension; I87.2 Venous insufficiency (chronic) (peripheral); Z51.5 Encounter for palliative care; E66.9 Obesity, unspecified; E83.51 Hypocalcemia; N17.0 Acute kidney failure with tubular necrosis; J98.11 Atelectasis; M79.89 Other specified soft tissue disorders; Y84.8 Other medical procedures as the cause of abnormal reaction of the patient, or of later complication, without mention of misadventure at the time of the procedure; I48.91 Unspecified atrial fibrillation; E87.6 Hypokalemia; I27.20 Pulmonary hypertension, unspecified; Z86.718 Personal history of other venous thrombosis and embolism; Z68.38 Body mass index [BMI] 38.0-38.9, adult; Z87.891 Personal history of nicotine dependence; R78.81 Bacteremia; T17.890A Other foreign object in other parts of respiratory tract causing asphyxiation, initial encounter; Z79.899 Other long term (current) drug therapy; T36.8X5A Adverse effect of other systemic antibiotics, initial encounter; D63.8 Anemia in other chronic diseases classified elsewhere; E87.70 Fluid overload, unspecified; J90 Pleural effusion, not elsewhere classified
CPT/HCPCS: 71010; 76770; 80048; 80053; 80069; 80202; 81003; 82040; 82306; 82550; 82553; 83540; 83605; 83735; 83880; 83970; 84100; 84466; 84484; 85014; 85018; 85025; 85027; 86704; 86706; 86803; 86850; 86860; 86870; 86880; 86900; 86901; 86905; 86920; 87040; 87077; 87186; 87340; 87502; 87801; 89190; 92610 GN; 93005; 93306; 93971; 94640; 94640 76; 94667; 94799; 97530 GP; 99202; 99281; 99285; C1752; C1753; C1755; C9113; J0461; J0610; J0881; J1644; J1940; J2270; J2543; J3370; J7030; J7050; P9016; P9047